=== PATIENT | male | born 1990 | race Caucasian/White ===

== ENCOUNTER 2017-09-02 10:46 | Emergency (ER) | payer OTHER ==
[~2017-09-02] VITALS: Ht 190.5 cm; Wt 83.0 kg
[2017-09-02 10:56] VITALS: BP 134/73
--- NOTE | 2017-09-02 12:11 | NUR ---
PATIENT TO BED 6.
--- NOTE | 2017-09-02 12:15 | NUR ---
27M BIB SELF C/O MEDICAL CLEARANCE TO GO BACK TO WORK; PT STATES HAD LOW BLOOD SUGAR 46 WITH DIZZINESS ON SATURDAY, AND WAS TOLD TO COME TO ER FOR CHECKUP; PT BLOOD SUGAR 95 AT THIS TIME; PT AA&OX4, PERRLA, BL LUNG SOUNDS CLEAR, RR EVEN/UNLABORED, SKIN IS WARM/DRY/INTACT AT THIS TIME; PT STATES NO N/V/D, DIZZINESS, WEAKNESS, OR HEADACHE AT THIS TIME; STEADY GAIT; PT RESTING IN BED WITH HOB ELEVATED AND IN LOWEST POSITION; POSITIONED FOR COMFORT; ER MD MADE AWARE OF STATUS. WILL CONTINUE TO MONITOR.
[2017-09-02 12:33] VITALS: BP 117/70
--- NOTE | 2017-09-02 12:33 | NUR ---
Patient discharged with v/s stable. Written and verbal after care instructions given and explained. Patient verbalized understanding. Ambulatory with steady gait. All questions addressed prior to discharge. Advised to follow up with PMD.
== END 2017-09-02 12:33 | disposition home or self-care (01) ==
LOC: MED 10:46
DX: E16.1 Other hypoglycemia (principal)
CPT/HCPCS: 82948; 99283

== ENCOUNTER 2017-10-22 13:59 | Emergency (ER) | payer OTHER ==
[~2017-10-22] VITALS: Ht 193 cm; Wt 84.8 kg
[2017-10-22 14:45] VITALS: BP 136/76
[2017-10-22] MEDS ORDERED: IBUPROFEN 400 MG TAB PO ONE (15:05)
[2017-10-22] MEDS ORDERED: ONDANSETRON 4 MG ODT PO ONE (15:05)
== END 2017-10-22 15:36 | disposition home or self-care (01) ==
LOC: MED 13:59
DX: S13.4XXA Sprain of ligaments of cervical spine, initial encounter (principal); H93.19 Tinnitus, unspecified ear; R03.0 Elevated blood-pressure reading, without diagnosis of hypertension; V23.4XXA Motorcycle driver injured in collision with car, pick-up truck or van in traffic accident, initial encounter; Y93.89 Activity, other specified; Y92.89 Other specified places as the place of occurrence of the external cause; Y99.8 Other external cause status
CPT/HCPCS: 72040; 99284; S0119

== ENCOUNTER 2017-11-14 09:59 | Emergency (ER) | payer OTHER ==
[~2017-11-14] VITALS: Ht 160 cm; Wt 85.7 kg
[2017-11-14 10:23] VITALS: BP 116/61
--- NOTE | 2017-11-14 10:31 | NUR ---
27/M C/O PAINFUL MASTICATION TO [facility] SINCE SATURDAY NIGHT S/P FOOTBALL INJURY WITH PLAYERS SHOULDER. HX R JAW FX OVER 10 YRS AGO. NEEDS NOTE TO RETURN BACK TO WORK. HX R JAW FX >10YRS AGO. AX DENIES. DENIES N/V/D; SKIN IS PINK/WARM/DRY; AAOX4 WITH EVEN AND STEADY GAIT; LUNGS CLEAR BL; HR EVEN AND REGULAR; PT DENIES ANY FEVER, CP, SOB, OR COUGH AT THIS TIME; PATIENT STATES PAIN OF 3/10 AT THIS TIME; VSS; PATIENT POSITIONED FOR COMFORT; HOB ELEVATED; BEDRAILS UP X2; BED DOWN. ER MD MADE AWARE OF PT STATUS.
[2017-11-14 11:41] VITALS: BP 126/73
== END 2017-11-14 11:41 | disposition home or self-care (01) ==
LOC: MED 09:59
DX: R68.84 Jaw pain (principal); W22.8XXA Striking against or struck by other objects, initial encounter; Y93.61 Activity, american tackle football; Y92.89 Other specified places as the place of occurrence of the external cause; Y99.8 Other external cause status
CPT/HCPCS: 70110; 99284